=== PATIENT | female | born 1975 ===

== ENCOUNTER 2018-06-04 19:49 | Emergency (ER) | payer SELFPAY ==
[2018-06-04 19:58] VITALS: TEMP 98.7
[2018-06-04] MEDS ORDERED: Aluminum Hydroxide/Magnesium Hydroxide Susp (30 mL) PO STA (21:32)
--- NOTE | 2018-06-04 21:37 | C.PDOC ---
History Of Present Illness 43 y/o female presents to the ED complaining of pelvic pain that began 1 month ago. Patient states initially pain was left-sided but is now radiating to the right for the past 2 weeks. The pain comes and goes, and is not associated with any other symptoms. Patient denies any vomiting, diarrhea, fever, chills, dysuria, vaginal bleeding, or discharge. LMP was 05/13/18 and was normal. Patient also reports PMHx of gastritis, and currently is experiencing burning and discomfort in the epigastric area. Time Seen by Provider: 06/04/18 21:02 Chief Complaint (Nursing): Abdominal Pain History Per: Patient History/Exam Limitations: no limitations Onset/Duration Of Symptoms: Days Current Symptoms Are (Timing): Still Present Location Of Pain/Discomfort: Epigastric, Other (Pelvic pain) Past Medical History Reviewed: Historical Data, Nursing Documentation, Vital Signs Vital Signs: Last Vital Signs Temp 98.7 F 06/04/18 19:53 Pulse 73 06/04/18 19:53 Resp 20 06/04/18 19:53 BP 131/81 06/04/18 19:53 Pulse Ox 99 06/04/18 23:34 - Medical History PMH: No Chronic Diseases Surgical History: Family History: States: No Known Family Hx - Social History Hx Tobacco Use: No Hx Alcohol Use: No Hx Substance Use: No Review Of Systems Constitutional: Negative for: Fever, Chills Respiratory: Negative for: Shortness of Breath Gastrointestinal: Positive for: Abdominal Pain (epigastric burning). Negative for: Vomiting, Diarrhea, Hematochezia Genitourinary: Positive for: Pelvic Pain. Negative for: Dysuria, Frequency, Hematuria, Vaginal Discharge, Vaginal Bleeding Neurological: Negative for: Dizziness Physical Exam - Physical Exam Appears: Non-toxic, No Acute Distress Skin: Normal Color, Warm, Dry Head: Atraumatic, Normacephalic Eye(s): bilateral: Normal Inspection, PERRL, EOMI Nose: Normal Oral Mucosa: Moist Neck: Supple Chest: Symmetrical Cardiovascular: Rhythm Regular, No Murmur Respiratory: Normal Breath Sounds, No Rales, No Rhonchi, No Wheezing Gastrointestinal/Abdominal: Soft, Tenderness (Mild tenderness in the right and left pelvic areas), No Distention, No Guarding, No Rebound Back: Normal Inspection, No CVA Tenderness Extremity: Bilateral: Atraumatic, Normal Color And Temperature, Normal ROM Neurological/Psych: Oriented x3, Normal Speech ED Course And Treatment - Laboratory Results Result Diagrams: 06/04/18 21:37 06/04/18 21:37 Lab Interpretation: Normal O2 Sat by Pulse Oximetry: 99 (RA) Pulse Ox Interpretation: Normal - CT Scan/US US Pelvis/Transvag Other Rad Studies (CT/US): Read By Radiologist, Radiology Report Reviewed CT/US Interpretation: IMPRESSION: 1. Right ovarian 2.6 cm cyst is either a hemorrhagic cyst or endometrioma. Recommend initial. pelvic ultrasound follow- up in 6-12 weeks. 2. No acute findings otherwise. Progress Note: Blood work and urine sent. Patient given 30 ml Maalox PO. Pelvic ultrasound ordered. Reevaluation Time: 23:36 Reassessment Condition: Improved Disposition Counseled Patient/Family Regarding: Studies Performed, Diagnosis, Need For Followup, Rx Given - Disposition Referrals: [facility] [Outside] Disposition: HOME/ ROUTINE Disposition Time: 23:37 Condition: STABLE Prescriptions: Naproxen [Naprosyn] 1 tab PO BID PRN #25 tab PRN Reason: Pain Instructions: Ovarian Cyst (DC) Forms: [employer] (Slovak) Print Language: ROMANIAN - Clinical Impression Clinical Impression: Ovarian cyst - Scribe Statement The provider has reviewed the documentation as recorded by the Sharathibsandip Galeana Provider Attestation: All medical record entries made by the Sharathibsandip were at my direction and personally dictated by me. I have reviewed the chart and agree that the record accurately reflects my personal performance of the history, physical exam, medical decision making, and the department course for this patient. I have also personally directed, reviewed, and agree with the discharge instructions and disposition.
[2018-06-04 21:40] LABS: BASO # 0.1 K/uL (0.0-0.2); BASO % 0.5 % (0.0-2.0); EOS # 0.3 K/uL (0.0-0.7); EOS % 3.3 % (0.0-4.0); HCG,QUALITATIVE URINE NEGATIVE (NEGATIVE); HEMOGLOBIN 13.8 g/dL (11.0-16.0); LYMPH # 4.3 K/uL (1.0-4.3); LYMPH % 40.7 % (20.0-40.0); MEAN CELL VOLUME 85.2 fL (81.0-99.0); MEAN CORPUSCULAR HEMOGLOBIN 28.8 pg (27.0-31.0); MEAN CORPUSCULAR HGB CONC 33.8 g/dL (33.0-37.0); MONO # 0.6 K/uL (0.0-0.8); MONO % 6.2 % (0.0-10.0); NEUT # 5.2 K/uL (1.8-7.0); NEUT % 49.3 % (50.0-75.0); NRBC % 0.1 % (0.0-2.0); RBC 4.8 Mil/uL (3.80-5.20); WHITE BLOOD COUNT 10.5 K/uL (4.8-10.8)
[2018-06-04 21:44] LABS: SQUAMOUS EPITHIAL 2 /hpf (0-5); URINE BACTERIA RARE (<OCC); URINE BILIRUBIN NEGATIVE (NEGATIVE); URINE BLOOD NEGATIVE (NEGATIVE); URINE CLARITY Clear (Clear); URINE COLOR Yellow (YELLOW); URINE GLUCOSE (UA) NORMAL (Normal); URINE LEUKOCYTE ESTERASE TRACE Leu/uL (Negative); URINE PROTEIN NEGATIVE (NEGATIVE); URINE UROBILINOGEN NORMAL mg/dL (0.2-1.0)
[2018-06-04 21:54] LABS: ALB/GLOB RATIO 1.4 (1.0-2.1); ALBUMIN 4.9 g/dL (3.5-5.0); ALT/SGPT 45 U/L (9-52); AST/SGOT 34 U/L (14-36); BLOOD UREA NITROGEN 14 mg/dL (7-17); CALCIUM 9.7 mg/dl (8.6-10.4); GFR NON-AFRICAN AMERICAN > 60; LIPASE 79 U/L (23-300)
[2018-06-04] MEDS ORDERED: Aluminum Hydroxide/Magnesium Hydroxide Susp (30 mL) ONE (22:03)
[2018-06-04 23:49] VITALS: BP 132/67; PULSE 76; RESP 14; O2SAT 100
--- NOTE | 2018-06-05 10:43 | US ---
Date of service: 06/04/2018 HISTORY: abd pain COMPARISON: None available. TECHNIQUE: Grayscale, color Doppler and spectral evaluation the pelvis performed transabdominally and transvaginally FINDINGS: UTERUS: Measures 7.7 x 3.5 x 4.3 cm. Anteverted. Normal in size and appearance. No fibroid or other mass lesion seen. ENDOMETRIUM: Measures 9 mm in diameter. Unremarkable. CERVIX: No cervical abnormality identified. RIGHT OVARY: Measures 4.6 x 2.9 x 3.5 cm. Hypoechoic structure with peripheral enhancement measuring 2.6 x 2.2 x 2.1 cm, likely corpus luteum. Normal flow. LEFT OVARY: Measures 2.4 x 1.6 x 2.1 cm. No solid mass. Normal flow. FREE FLUID: Small amount of fluid, likely physiologic. OTHER FINDINGS: None. IMPRESSION: Unremarkable pelvic ultrasound.
== END 2018-06-04 23:49 | disposition home or self-care (01) ==
LOC: C.ER 19:49
DX: N83.209 Unspecified ovarian cyst, unspecified side (principal)